=== PATIENT | female | born 1995 | race Caucasian/White ===

== ENCOUNTER 2017-04-09 06:17 | Emergency (ER) | payer BC, OTHER ==
[2017-04-09] MEDS ORDERED: NORMAL SALINE 1000 ML 1,000 ML IV ONE ×2 (07:07)
[2017-04-09] MEDS ORDERED: AMPICILLIN SOD/SULBACTAM 3 GM VIAL IV ONE (07:07)
[2017-04-09 07:55] LABS: ABSOLUTE BASOPHILS # (AUTO) 0.1 10^3/uL (0.0-0.2); ABSOLUTE EOSINOPHILS # (AUTO) 0.3 10^3/uL (0.0-0.6); ABSOLUTE LYMPHOCYTES (AUTO) 3.4 10^3/uL (0.5-4.7); ABSOLUTE MONOCYTES (AUTO) 0.9 10^3/uL (0.1-1.4); ABSOLUTE NEUT (AUTO) 5.3 10^3/uL (1.7-8.2); BASOPHILS % (AUTO) 0.7 % (0-2); EOSINOPHILS % (AUTO) 2.7 % (0-6); HEMATOCRIT 40.8 % (36.0-47.0); HEMOGLOBIN 14.1 g/dL (12.0-15.5); HGB HCT DIFFERENCE 1.5; LYMPHOCYTES % (AUTO) 34.1 % (13-45); MEAN CORPUSCULAR HEMOGLOBIN 30.1 pg (27.0-33.4); MEAN CORPUSCULAR HGB CONC 34.6 g/dL (32.0-36.0); MEAN CORPUSCULAR VOLUME 87 fl (80-97); MONOCYTES % (AUTO) 8.6 % (3-13); RED BLOOD COUNT 4.69 10^6/uL (3.72-5.28); RED CELL DISTRIBUTION WIDTH 12.7 % (11.5-14.0); SEGMENTED NEUTROPHILS % (AUTO) 53.9 % (42-78); WHITE BLOOD COUNT 9.9 10^3/uL (4.0-10.5)
[2017-04-09 07:57] LABS: APPEARANCE,URINE CLEAR; BILIRUBIN,URINE NEGATIVE (NEGATIVE); GLUCOSE, URINE NEGATIVE (NEGATIVE); KETONES,URINE NEGATIVE (NEGATIVE); LEUKOCYTE ESTERASE,URINE NEGATIVE (NEGATIVE); NITRITE,URINE NEGATIVE (NEGATIVE); PROTEIN,URINE NEGATIVE (NEGATIVE); URINE SPECIFIC GRAVITY 1.002; UROBILINOGEN,URINE NEGATIVE mg/dL (<2.0)
[2017-04-09] MEDS ORDERED: ONDANSETRON HCL INJ/PF 4 MG/2 ML SDV IV ONE ×2 (08:02→09:25)
[2017-04-09] MEDS ORDERED: MORPHINE SULFATE 10 MG/ML INJ IV ONE (08:02)
--- NOTE | 2017-04-09 08:10 | ER Document Report ---
ED General - General Chief Complaint: Abdominal Pain Stated Complaint: ABDOMINAL PAIN Time Seen by Provider: 04/09/17 07:06 TRAVEL OUTSIDE OF THE [place] IN LAST 30 DAYS: No - HPI Patient complains to provider of: Right lower quadrant abdominal pain Notes: Patient coming in for evaluation of her lower quadrant abdominal pain ongoing since 10:00 last night with chills nausea vomiting and diarrhea. Patient states painful to ambulate in the right lower quadrant. Patient denies any sexual intercourse since December stating that her currently is deployed. No vaginal bleeding or vaginal discharge. Denies any other past medical history denies any past surgical abdominal history. - Related Data Allergies/Adverse Reactions: fentanyl [Fentanyl] Allergy (Verified 12/26/15 01:45) naproxen [Naproxen] Allergy (Verified 12/26/15 01:45) Past Medical History - Social History Smoking Status: Unknown if Ever Smoked Family History: Reviewed & Not Pertinent Patient has suicidal ideation: No Patient has homicidal ideation: No Renal/ Medical History: Denies: Hx Peritoneal Dialysis Past Surgical History: Reports: Hx Nose Surgery, Hx Orthopedic Surgery - right fottx3 - Immunizations Hx Diphtheria, Pertussis, Tetanus Vaccination: Yes Review of Systems - Review of Systems Constitutional: No symptoms reported EENT: No symptoms reported Cardiovascular: No symptoms reported Respiratory: No symptoms reported Gastrointestinal: Abdominal pain Genitourinary: No symptoms reported Female Genitourinary: No symptoms reported Musculoskeletal: No symptoms reported Skin: No symptoms reported Hematologic/Lymphatic: No symptoms reported Neurological/Psychological: No symptoms reported -: Yes All other systems reviewed and negative Physical Exam - Vital signs Vitals: Temp Pulse Resp BP Pulse Ox 97.7 F 95 16 105/67 99 04/09/17 06:20 04/09/17 06:20 04/09/17 06:20 04/09/17 06:20 04/09/17 06:20 Interpretation: Normal - General General appearance: Appears well, Alert - HEENT Head: Normocephalic, Atraumatic Eyes: Normal Pupils: PERRL - Respiratory Respiratory status: No respiratory distress Chest status: Nontender Breath sounds: Normal Chest palpation: Normal - Cardiovascular Rhythm: Regular Heart sounds: Normal auscultation Murmur: No - Abdominal Inspection: Normal Distension: No distension Bowel sounds: Normal Tenderness: Tender - Regarding the right lower quadrant moderate tenderness no rebound, McBurney's point, Guarding. No: Andino's sign, Rebound Organomegaly: No organomegaly Notes: Patient with a positive psoas sign - Genitourinary External exam: Normal Speculum exam: Normal Bimanuel exam: Normal - Back Back: Normal, Nontender - Extremities General upper extremity: Normal inspection, Nontender, Normal color, Normal ROM , Normal temperature General lower extremity: Normal inspection, Nontender, Normal color, Normal ROM , Normal temperature, Normal weight bearing. No: Kulwinder's sign - Neurological Neuro grossly intact: Yes Cognition: Normal Orientation: AAOx4 [place] Coma Scale Eye Opening: Spontaneous [place] Coma Scale Verbal: Oriented [place] Coma Scale Motor: Obeys Commands Hussein Coma Scale Total: 15 Speech: Normal Motor strength normal: LUE, RUE, LLE, RLE Sensory: Normal - Psychological Associated symptoms: Normal affect, Normal mood - Skin Skin Temperature: Warm Skin Moisture: Dry Skin Color: Normal Course - Re-evaluation Re-evalutation: 04/09/17 08:10 Concerning for acute appendicitis with patient symptoms nausea vomiting diarrhea right lower quadrant pain. Will perform pelvic examination will get a CT scan with IV and oral contrast. Pain medication will be given patient was given a prophylactic dose of Unasyn 04/09/17 14:11 CT scan did not show any signs of acute appendicitis. Patient still having right lower quadrant pain will assess for possible ovarian etiology of a pelvic examination was benign 04/09/17 14:58 The patient presents with abdominal pain without signs of peritonitis or other life-threatening or serious etiology. The patient appears stable for discharge and has been instructed to return immediately if the symptoms worsen in any way , or in 8-12hr if not improved for re-evaluation. The patient has been instructed to return if the symptoms worsen or change in any way. - Vital Signs Vital signs: Temp Pulse Resp BP Pulse Ox 97.5 F 65 16 100/68 98 04/09/17 12:20 04/09/17 12:20 04/09/17 12:20 04/09/17 12:20 04/09/17 12:20 - Laboratory Result Diagrams: 04/09/17 07:41 04/09/17 07:41 Laboratory results interpreted by me: 04/09/17 07:41 Urine Blood SMALL H Discharge - Discharge Clinical Impression: Cyst of ovary, right Abdominal pain Qualifiers: Abdominal location: right lower quadrant Qualified Code(s): R10.31 - Right lower quadrant pain Instructions: Observation for Appendicitis ([facility]), Abdominal Pain ([facility]), Ovarian Cyst ([facility]) Additional Instructions: Your evaluation today reveals that you have a right ovarian cyst CAT scan shows no signs of infection no signs of acute appendicitis. Please follow-up with your primary care physician take medication as prescribed. Prescriptions: Ondansetron [Zofran Odt 4 mg Tablet] 1 - 2 tab PO Q4H PRN #15 tab.rapdis PRN Reason: For Nausea/Vomiting Tramadol HCl [Ultram 50 mg Tablet] 50 mg PO ASDIR PRN #20 tablet PRN Reason: Forms: Return to Work
[2017-04-09 08:18] LABS: ALANINE AMINOTRANSFERASE 27 U/L (9-52); ALBUMIN 4.4 g/dL (3.5-5.0); ALKALINE PHOSPHATASE 56 U/L (38-126); ANION GAP 11 (5-19); ASPARTATE AMINO TRANSFERASE 18 U/L (14-36); BILIRUBIN,DIRECT 0.3 mg/dL (0.0-0.4); BILIRUBIN,TOTAL 0.4 mg/dL (0.2-1.3); BLOOD UREA NITROGEN 8 mg/dL (7-20); CALCIUM 9.4 mg/dL (8.4-10.2); CARBON DIOXIDE 24 mmol/L (22-30); CHLORIDE 105 mmol/L (98-107); CREATININE RESULT 0.59 mg/dL (0.52-1.25); GLUCOSE 89 mg/dL (75-110); POTASSIUM 3.7 mmol/L (3.6-5.0); SODIUM 139.9 mmol/L (137-145); TOTAL PROTEIN 7.7 g/dL (6.3-8.2)
[2017-04-09] MEDS ORDERED: FAMOTIDINE INJ/PF 20 MG/2 ML SDV IV ONE ×2 (09:08→09:11)
[2017-04-09] MEDS ORDERED: DIPHENHYDRAMINE HCL 50 MG/ML VIAL IV ONE (09:08)
[2017-04-09] MEDS ORDERED: DIPHENHYDRAMINE HCL 50 MG/ML VIAL ONE (09:11)
--- NOTE | 2017-04-09 10:24 | RADIOLOGY REPORT (SQ) ---
EXAM DESCRIPTION: CT ABD/PELVIS WITH IV ORAL COMPLETED DATE/TIME: 04/09/2017 10:10 am REASON FOR STUDY: RLQ pain COMPARISON: None. TECHNIQUE: CT scan of the abdomen and pelvis performed with intravenous and oral contrast using shell miguel scanning technique with dynamic intravenous contrast injection. Images reviewed with lung, soft t issue, and bone windows. Reconstructed coronal and sagittal MPR images reviewed. Delayed images for e valuation of the urinary system also acquired. All images stored on PACS. All CT scanners at this facility use dose modulation, iterative reconstruction, and/or weight based d osing when appropriate to reduce radiation dose to as low as reasonably achievable (ALARA). [facility]: Dose Right [facility]: CareDose [facility]: Dose Right [facility]: Teradose 4D [facility]: [place] CONTRAST TYPE AND DOSE: contrast/concentration: Isovue 370.00 mg/ml; Total Contrast Delivered: 83.0 ml; Total Saline Delivered: 68.1 ml RENAL FUNCTION: None required. The patient is less than 50 years old. RADIATION DOSE: 19.09 . LIMITATIONS: None. FINDINGS: LOWER CHEST: No significant findings. No nodules or infiltrates. LIVER: Normal size. No masses. No dilated ducts. SPLEEN: Normal size. No focal lesions. PANCREAS: No masses. No significant calcifications. No adjacent inflammation or peripancreatic fluid collections. Pancreatic duct not dilated. GALLBLADDER: No identified stones by CT criteria. No inflammatory changes to suggest cholecystitis. ADRENAL GLANDS: No significant masses or asymmetry. RIGHT KIDNEY AND URETER: No solid masses. No significant calcifications. No hydronephrosis or hyd roureter. LEFT KIDNEY AND URETER: No solid masses. No significant calcifications. No hydronephrosis or hydr oureter. AORTA AND VESSELS: No aneurysm. No dissection. Renal arteries, SMA, celiac without stenosis. RETROPERITONEUM: No retroperitoneal adenopathy, hemorrhage or masses. BOWEL AND PERITONEAL CAVITY: No obstruction. No visualized masses. No free fluid. No inflammatory ch anges or thickening of bowel wall. APPENDIX: Normal. PELVIS: No significant masses. Normal bladder. No free fluid. ABDOMINAL WALL: No masses. No hernias. BONES: No significant or acute findings. OTHER: No other significant finding. IMPRESSION: NO SIGNIFICANT OR ACUTE FINDINGS IN THE ABDOMEN OR PELVIS. TECHNICAL DOCUMENTATION: JOB ID: [id number] Quality ID # [id number]: Final reports with documentation of one or more dose reduction techniques (e.g., Au tomated exposure control, adjustment of the mA and/or kV according to patient size, use of iterative reconstruction technique) 2010 [employer]- All Rights Reserved
[2017-04-09 11:24] LABS: CHLAM PCR NOT DETECTED (NOT DETECT)
--- NOTE | 2017-04-09 14:25 | RADIOLOGY REPORT (SQ) ---
EXAM DESCRIPTION: U/S NON OB PEL TV W/DOPPLER COMPLETED DATE/TIME: 04/09/2017 2:12 pm REASON FOR STUDY: RLQ pain COMPARISON: CT abdomen pelvis 04/09/2017 TECHNIQUE: Dynamic and static grayscale images acquired of the pelvis via transvaginal approach and recorded on PACS. Additional selected color Doppler and spectral images recorded. LIMITATIONS: None. FINDINGS: UTERUS: Contour normal. No mass. ENDOMETRIAL STRIPE: No focal or generalized thickening. No masses. CERVIX: 1.8 cm. No nabothian cysts. RIGHT OVARY: There is a 20 x 16 x 16 mm follicular cyst. RIGHT OVARY DOPPLER: Normal arterial vascular flow without evidence for torsion. LEFT OVARY: Not identified. LEFT OVARY DOPPLER: Ovary not identified. FREE FLUID: None noted. OTHER: No other significant finding. MEASUREMENTS: UTERUS: 63 x 65 x 48 mm. ENDOMETRIAL STRIPE: 6.4 mm. RIGHT OVARY: 39 x 21 x 24 mm. LEFT OVARY: Not identified. IMPRESSION: Essentially normal study. There is a 20 mm follicular cyst on the right ovary. TECHNICAL DOCUMENTATION: JOB ID: [id number]- All Rights Reserved
[2017-04-09 15:12] VITALS: BP 108/68
== END 2017-04-09 15:10 | disposition home or self-care (01) ==
LOC: ER 06:17
DX: N83.201 Unspecified ovarian cyst, right side (principal); R10.31 Right lower quadrant pain; R11.2 Nausea with vomiting, unspecified; R19.7 Diarrhea, unspecified
CPT/HCPCS: 96376; 99284; 96361; 96375; 96365; 36415; 87210; 83690; 85025; 81025; 80053; 81001; 87491; 87591; 76830; 93976; 74177; J1200; J0295; J2270; J2405; J7030; S0028

== ENCOUNTER 2018-04-22 00:52 | Emergency (ER) | payer BC, OTHER ==
[2018-04-22 01:48] LABS: APPEARANCE,URINE CLEAR; BILIRUBIN,URINE NEGATIVE (NEGATIVE); COLOR,URINE STRAW; GLUCOSE, URINE NEGATIVE (NEGATIVE); KETONES,URINE NEGATIVE (NEGATIVE); LEUKOCYTE ESTERASE,URINE NEGATIVE (NEGATIVE); NITRITE,URINE NEGATIVE (NEGATIVE); PROTEIN,URINE NEGATIVE (NEGATIVE); URINE SPECIFIC GRAVITY 1.008; UROBILINOGEN,URINE NEGATIVE mg/dL (<2.0)
[2018-04-22] MEDS ORDERED: KETOROLAC TROMETHAMINE INJ/PF 30 MG/1 ML SDV IV ONE (02:10)
--- NOTE | 2018-04-22 02:17 | ER Document Report ---
ED GI/ - General Mode of Arrival: Ambulatory Information source: Patient TRAVEL OUTSIDE OF THE [place] IN LAST 30 DAYS: No <GIOVANNA TAM - Last Filed: 04/22/18 02:30> <ROSALBA SORIA - Last Filed: 04/22/18 04:38> - General Chief Complaint: Lower Abdominal Pain Stated Complaint: ABDOMINAL PAIN Time Seen by Provider: 04/22/18 02:01 Notes: Patient is a 22 year old female presenting to the emergency department complaining of lower abdominal pain and abnormal vaginal bleeding onset 3 days ago. Patient states she began to have heavy bleeding with blood clots and lower abdominal pain 3 days ago and presented to [facility] yesterday. She states she was diagnosed with menstrual cramps and discharged home. She states her menstrual periods are normally on time without severe cramps. She states the pain she is experiencing today is not similar to her menstrual cramps or ovarian cysts. Patient denies any fevers or vaginal discharge. Patient states her last menstrual period was 03/18/2018 and believes she is currently . (GIOVANNA TAM) - Related Data Allergies/Adverse Reactions: fentanyl [Fentanyl] Allergy (Verified 12/26/15 01:45) naproxen [Naproxen] Allergy (Verified 12/26/15 01:45) Past Medical History - General Information source: Patient - Social History Smoking Status: Current Some Day Smoker Cigarette use (# per day): Yes Frequency of alcohol use: Rare Family History: Reviewed & Not Pertinent Past Surgical History: Reports: Hx Nose Surgery, Hx Orthopedic Surgery - right fottx3 - Immunizations Hx Diphtheria, Pertussis, Tetanus Vaccination: Yes <GIOVANNA TAM - Last Filed: 04/22/18 02:30> Review of Systems - Review of Systems Constitutional: No symptoms reported EENT: No symptoms reported Cardiovascular: No symptoms reported Respiratory: No symptoms reported Gastrointestinal: See HPI, Abdominal pain Genitourinary: No symptoms reported Female Genitourinary: See HPI, Last menstrual period, Vaginal bleeding Musculoskeletal: No symptoms reported Skin: No symptoms reported Hematologic/Lymphatic: No symptoms reported Neurological/Psychological: No symptoms reported -: Yes All other systems reviewed and negative <GIOVANNA TAM - Last Filed: 04/22/18 02:30> Physical Exam <GIOVANNA TAM - Last Filed: 04/22/18 02:30> - Genitourinary External exam: Normal Speculum exam: Cervix closed, Other - There is a bar thick purulent drainage coming from the cervix. There is no bleeding noted at this time. Vaginal bleeding: None Bimanuel exam: Cervical motion tender, Bladder/Urethral tender, Adnexal tenderness <ROSALBA SORIA - Last Filed: 04/22/18 04:38> - Vital signs Vitals: Temp Pulse Resp BP Pulse Ox 99.3 F 108 H 24 H 120/90 H 99 04/22/18 00:59 04/22/18 00:59 04/22/18 00:59 04/22/18 00:59 04/22/18 00:59 - Notes Notes: GENERAL: Alert, interacts well. Appears uncomfortable. HEAD: Normocephalic, atraumatic. EYES: Pupils equal, round, and reactive to light. Extraocular movements intact. ENT: Oral mucosa moist, tongue midline. NECK: Full range of motion. Supple. Trachea midline. LUNGS: Clear to auscultation bilaterally, no wheezes, rales, or rhonchi. No respiratory distress. HEART: Regular rate and rhythm. No murmurs, gallops, or rubs. ABDOMEN: Soft, obese, lower abdomen diffusely tender to palpation. Non- distended. Bowel sounds present in all 4 quadrants. EXTREMITIES: Moves all 4 extremities spontaneously. No edema, radial and dorsalis pedis pulses 2/4 bilaterally. No cyanosis. NEUROLOGICAL: Alert and oriented x3. Normal speech. PSYCH: Normal affect, normal mood. SKIN: Warm, dry, normal turgor. No rashes or lesions noted. (YONATANGIOVANNA BERNSTEIN) Course - Laboratory Result Diagrams: 04/22/18 01:50 04/22/18 01:50 <GIOVANNA TAM - Last Filed: 04/22/18 02:30> - Laboratory Result Diagrams: 04/22/18 01:50 04/22/18 01:50 <ROSALBA SORIA - Last Filed: 04/22/18 04:38> - Vital Signs Vital signs: Temp Pulse Resp BP Pulse Ox 99.3 F 108 H 24 H 120/90 H 99 04/22/18 00:59 04/22/18 00:59 04/22/18 00:59 04/22/18 00:59 04/22/18 00:59 - Laboratory Laboratory results interpreted by me: 04/22/18 04/22/18 04/22/18 01:10 01:50 01:50 WBC 13.7 H Seg Neutrophils % 81.3 H Lymphocytes % 10.5 L Absolute Neutrophils 11.2 H Chloride 108 H Carbon Dioxide 17 L Urine Blood MODERATE H N.gonorrhoeae DNA (PCR) 04/22/18 02:45 WBC Seg Neutrophils % Lymphocytes % Absolute Neutrophils Chloride Carbon Dioxide Urine Blood N.gonorrhoeae DNA (PCR) DETECTED H Discharge <GIOVANNA TAM - Last Filed: 04/22/18 02:30> <ROSALBA SORIA - Last Filed: 04/22/18 04:38> - Discharge Clinical Impression: Pelvic inflammatory disease (PID), Gonorrhea Condition: Stable Disposition: HOME, SELF-CARE Additional Instructions: Pelvic Inflammatory Disease: You have been diagnosed as having pelvic inflammatory disease (PID). This is an infection of the fallopian tubes and surrounding areas of the pelvis. Symptoms are usually pelvic pain and discharge. The infection can do permanent damage to the tubes and ovaries. It should be taken very seriously. Treatment is antibiotics, which may be given by vein or by injection if the infection seems serious. It's important that you receive all recommended medication. Condoms help prevent spread of this infection to others. Because this infection is spread sexually, it's important that your sexual partner be checked before resuming sexual relations. If a culture shows gonorrhea or chlamydia organisms, the law requires that this be reported to the health department. Call the doctor or return at once if you develop increasing fever, rash, severe pelvic pain, vaginal bleeding (other than your period), or problems with your bladder or bowels. Gonorrhea: You have been diagnosed with gonorrhea. In men, this germ infects the urethra (and sometimes the throat). Men usually have drainage from the penis and pain with urination. In women, the germ infects the vagina and fallopian tubes. There may be discharge and pelvic pain. Some women have no symptoms at all. The infection can do permanent damage to the tubes and ovaries. It should be taken very seriously. Treatment is antibiotics. It's important that you receive all recommended medication. Use condoms to prevent spread of the infection. Because this infection is spread sexually, your sexual partner must be checked before resuming sexual relations. If a culture shows gonorrhea germs, it must be reported to the health department. Call the doctor or return at once if you develop increasing fever, rash, joint swelling, severe pelvic pain, vaginal bleeding (other than your period), or problems with your bladder or bowels. Take medications as prescribed. Drink plenty of fluids. Rest as much as possible. Take ibuprofen 800 mg every 8 hours or Aleve 2 tablets every 12 hours for the next few days. Follow-up with your doctor or with [facility] for recheck next week. RETURN TO THE EMERGENCY ROOM IF ANY NEW OR WORSENING SYMPTOMS. Prescriptions: Doxycycline Hyclate 100 mg PO BID #14 tablet Referrals: JOLENE MENDIOLA [Primary Care Provider] - Follow up as needed [facility] [Provider Group] - Follow up in 1 week Scribe Attestation: 04/22/18 03:10 I personally performed the services described in the documentation, reviewed and edited the documentation which was dictated to the scribe in my presence, and it accurately records my words and actions. (ROSALBA SORIA) Scribe Documentation - Scribe Written by Adela:: Adela Coates, 04/22/2018 02:19 acting as scribe for :: Marbin <GIOVANNA TAM - Last Filed: 04/22/18 02:30>
[2018-04-22 02:19] LABS: ABSOLUTE EOSINOPHILS # (AUTO) 0.1 10^3/uL (0.0-0.6); ABSOLUTE LYMPHOCYTES (AUTO) 1.4 10^3/uL (0.5-4.7); ABSOLUTE NEUT (AUTO) 11.2 10^3/uL (1.7-8.2); BASOPHILS % (AUTO) 0.3 % (0-2); EOSINOPHILS % (AUTO) 0.9 % (0-6); HEMATOCRIT 41.7 % (36.0-47.0); HEMOGLOBIN 14.7 g/dL (12.0-15.5); LYMPHOCYTES % (AUTO) 10.5 % (13-45); MEAN CORPUSCULAR HGB CONC 35.1 g/dL (32.0-36.0); MEAN CORPUSCULAR VOLUME 85 fl (80-97); PLATELET COUNT 245 10^3/uL (150-450); RED BLOOD COUNT 4.89 10^6/uL (3.72-5.28); RED CELL DISTRIBUTION WIDTH 12.8 % (11.5-14.0); SEGMENTED NEUTROPHILS % (AUTO) 81.3 % (42-78); TOTAL CELLS COUNTED % (AUTO) 100 %; WHITE BLOOD COUNT 13.7 10^3/uL (4.0-10.5)
[2018-04-22 02:44] LABS: ALANINE AMINOTRANSFERASE 23 U/L (9-52); ALBUMIN 4.6 g/dL (3.5-5.0); ALKALINE PHOSPHATASE 61 U/L (38-126); ANION GAP 17 (5-19); ASPARTATE AMINO TRANSFERASE 19 U/L (14-36); BILIRUBIN,DIRECT 0.3 mg/dL (0.0-0.4); BILIRUBIN,TOTAL 0.5 mg/dL (0.2-1.3); BLOOD UREA NITROGEN 8 mg/dL (7-20); CARBON DIOXIDE 17 mmol/L (22-30); CHLORIDE 108 mmol/L (98-107); GLUCOSE 92 mg/dL (75-110); POTASSIUM 3.7 mmol/L (3.6-5.0); SODIUM 141.5 mmol/L (137-145); TOTAL PROTEIN 7.8 g/dL (6.3-8.2)
[2018-04-22] MEDS ORDERED: CEFTRIAXONE INJ 1000 MG VIAL ONE (03:22)
[2018-04-22] MEDS: CEFTRIAXONE 1 GM/D5W RTU 1 GM/50 ML RTUPB IV ONE ×2 (03:30→03:32)
[2018-04-22] MEDS ORDERED: DOXYCYCLINE HYCLATE 100 MG TABLET PO ONE (03:49)
[2018-04-22 04:20] LABS: WBCS (WET MOUNT) 1+ WBCS SEEN; YEAST (WET MOUNT) NO YEAST SEEN
[2018-04-22 04:31] LABS: CHLAM PCR NOT DETECTED (NOT DETECT); GON PCR DETECTED (NOT DETECT)
[2018-04-22] MEDS ORDERED: HYDROCODONE/ACETAMINOPHEN 5-325 MG (6 TAB/ER DISP) PO PRN (04:37)
[2018-04-22 04:51] VITALS: BP 110/72
[2018-04-22 14:02] LABS: T.VAGINALIS (WET MOUNT) COULD NOT PERFORM
== END 2018-04-22 04:51 | disposition home or self-care (01) ==
LOC: ER 00:52
DX: N73.9 Female pelvic inflammatory disease, unspecified (principal); A54.9 Gonococcal infection, unspecified; R10.30 Lower abdominal pain, unspecified; F17.210 Nicotine dependence, cigarettes, uncomplicated
CPT/HCPCS: 99284; 96375; 96365; 36415; 87210; 84702; 85025; 81025; 80053; 81001; 87491; 87591; J1885; J0696

== ENCOUNTER 2018-09-01 16:20 | Emergency (ER) | payer BC, OTHER ==
[2018-09-01 17:04] LABS: APPEARANCE,URINE CLEAR; BILIRUBIN,URINE NEGATIVE (NEGATIVE); COLOR,URINE YELLOW; GLUCOSE, URINE NEGATIVE (NEGATIVE); KETONES,URINE NEGATIVE (NEGATIVE); LEUKOCYTE ESTERASE,URINE NEGATIVE (NEGATIVE); NITRITE,URINE NEGATIVE (NEGATIVE); PROTEIN,URINE NEGATIVE (NEGATIVE); UROBILINOGEN,URINE NEGATIVE mg/dL (<2.0)
[2018-09-01] MEDS ORDERED: ONDANSETRON HCL INJ/PF 4 MG/2 ML SDV IV ONE (17:08)
[2018-09-01] MEDS ORDERED: NORMAL SALINE 1000 ML 1,000 ML IV ONE (17:08)
--- NOTE | 2018-09-01 17:10 | ER Document Report ---
ED Medical Screen (RME) - General Chief Complaint: Abdominal Pain Stated Complaint: VOMITING, ABDOMINAL PAIN Time Seen by Provider: 09/01/18 17:04 Notes: 23 years old female with , 13 weeks presents today with vomited large chunk of blood as well as having diarrhea since this morning. Prior to that she was nauseous for the last several days, have vomited small amount of blood 2 times prior. Having lower abdominal pain. No fever chills or other constitutional symptoms. TRAVEL OUTSIDE OF THE [place] IN LAST 30 DAYS: No - Related Data Allergies/Adverse Reactions: fentanyl [Fentanyl] Allergy (Verified 09/01/18 16:24) naproxen [Naproxen] Allergy (Verified 09/01/18 16:24) Past Medical History - Social History Frequency of alcohol use: None Drug Abuse: None Renal/ Medical History: Denies: Hx Peritoneal Dialysis Past Surgical History: Reports: Hx Nose Surgery, Hx Orthopedic Surgery - right foot x3 - Immunizations Hx Diphtheria, Pertussis, Tetanus Vaccination: Yes Physical Exam - Vital signs Vitals: Temp Pulse Resp BP Pulse Ox 97.9 F 86 20 122/54 L 100 09/01/18 16:56 09/01/18 16:56 09/01/18 16:56 09/01/18 16:56 09/01/18 16:56 Course - Vital Signs Vital signs: Temp Pulse Resp BP Pulse Ox 97.9 F 86 20 122/54 L 100 09/01/18 16:56 09/01/18 16:56 09/01/18 16:56 09/01/18 16:56 09/01/18 16:56 - Laboratory Laboratory results interpreted by me: 09/01/18 16:40 Urine Ascorbic Acid 40 H Doctor's Discharge - Discharge Referrals: [facility]AL[facility],NO [Primary Care Provider] - Follow up as needed
[2018-09-01 18:52] LABS: ABSOLUTE EOSINOPHILS # (AUTO) 0.1 10^3/uL (0.0-0.6); ABSOLUTE LYMPHOCYTES (AUTO) 1.7 10^3/uL (0.5-4.7); ABSOLUTE MONOCYTES (AUTO) 0.6 10^3/uL (0.1-1.4); ABSOLUTE NEUT (AUTO) 4.9 10^3/uL (1.7-8.2); BASOPHILS % (AUTO) 0.4 % (0-2); HEMATOCRIT 37.4 % (36.0-47.0); HEMOGLOBIN 13.1 g/dL (12.0-15.5); LYMPHOCYTES % (AUTO) 23.2 % (13-45); MEAN CORPUSCULAR HEMOGLOBIN 29.8 pg (27.0-33.4); MEAN CORPUSCULAR VOLUME 85 fl (80-97); MONOCYTES % (AUTO) 8.5 % (3-13); PLATELET COUNT 247 10^3/uL (150-450); RED BLOOD COUNT 4.39 10^6/uL (3.72-5.28); RED CELL DISTRIBUTION WIDTH 12.8 % (11.5-14.0); SEGMENTED NEUTROPHILS % (AUTO) 66.9 % (42-78); TOTAL CELLS COUNTED % (AUTO) 100 %; WHITE BLOOD COUNT 7.3 10^3/uL (4.0-10.5)
--- NOTE | 2018-09-01 19:01 | ER Document Report ---
ED GI/ - General Chief Complaint: Abdominal Pain Stated Complaint: VOMITING, ABDOMINAL PAIN Time Seen by Provider: 09/01/18 19:01 Mode of Arrival: Ambulatory Information source: Patient Notes: Patient is a 23-year-old female at approximately 13 weeks who presents with acute onset lower abdominal pain along with chronic episodes of bloody and nonbilious emesis. Patient states that during her entire thus far she has had several episodes daily of nonbloody emesis, today the episodes changed to bloody and she began to have lower abdominal cramping. Pain also radiates around to the back, she denies vaginal bleeding or discharge. She denies recent injury to the abdomen or pelvis. Of note, the patient has been seen and evaluated by her shipping specialist who has given her Diclegis without improvement. TRAVEL OUTSIDE OF THE [place] IN LAST 30 DAYS: No - HPI Patient complains to provider of: Abdominal pain, , Vomiting. No: Vaginal bleeding, Vaginal discharge Onset: Just prior to arrival Timing/Duration: Sudden Quality of pain: Achy, Cramping. denies: Sharp, Stabbing Severity at maximum: Moderate Severity in ED: Mild Pain Level: 2 Context: Location: LLQ, RLQ, Pelvis Vaginal bleeding (Compared to normal period): None Menstrual period history: : 1 Para: 0 OB ultrasound done: No vitamins taken: Yes Sexual history: Active Associated symptoms: Blood in emesis, Diarrhea, Nausea. denies: Blood in stool , Chest pain, Fever Exacerbated by: Denies Relieved by: Denies Similar symptoms previously: Yes Recently seen / treated by doctor: Yes - Related Data Allergies/Adverse Reactions: fentanyl [Fentanyl] Allergy (Verified 09/01/18 16:24) naproxen [Naproxen] Allergy (Verified 09/01/18 16:24) Past Medical History - General Information source: Patient - Social History Smoking Status: Current Every Day Smoker Cigarette use (# per day): No Chew tobacco use (# tins/day): No Frequency of alcohol use: None Drug Abuse: None Lives with: Alone Family History: Reviewed & Not Pertinent Patient has suicidal ideation: No Patient has homicidal ideation: No - Past Medical History Cardiac Medical History: Reports: None Pulmonary Medical History: Reports: None EENT Medical History: Reports: None Neurological Medical History: Reports: None Endocrine Medical History: Reports: None Renal/ Medical History: Reports: None. Denies: Hx Peritoneal Dialysis Malignancy Medical History: Reports: None GI Medical History: Reports: Other - Hyperemesis gravidarum Musculoskeletal Medical History: Reports None Skin Medical History: Reports None Psychiatric Medical History: Reports: None Traumatic Medical History: Reports: None Infectious Medical History: Reports: None Surgical Hx: Negative Past Surgical History: Reports: Hx Nose Surgery, Hx Orthopedic Surgery - right foot x3 - Immunizations Hx Diphtheria, Pertussis, Tetanus Vaccination: Yes Review of Systems - Review of Systems -: Yes ROS unobtainable due to patient's medical condition Constitutional: No symptoms reported EENT: No symptoms reported Cardiovascular: No symptoms reported Respiratory: No symptoms reported Gastrointestinal: Abdominal pain, Diarrhea, Nausea, Vomiting, Blood in vomit. denies: Abdomen distended, Blood streaked bowels, Black stools, Rectal bleeding Genitourinary: No symptoms reported Female Genitourinary: No symptoms reported, . denies: Vaginal discharge , Vaginal bleeding Musculoskeletal: No symptoms reported Skin: No symptoms reported Hematologic/Lymphatic: No symptoms reported Neurological/Psychological: No symptoms reported -: Yes All other systems reviewed and negative Physical Exam - Vital signs Vitals: Temp Pulse Resp BP Pulse Ox 97.9 F 86 20 122/54 L 100 09/01/18 16:56 09/01/18 16:56 09/01/18 16:56 09/01/18 16:56 09/01/18 16:56 Interpretation: Normal - General General appearance: Appears well, Alert In distress: None - HEENT Head: Normocephalic, Atraumatic Eyes: Normal Pupils: PERRL - Respiratory Respiratory status: No respiratory distress Chest status: Nontender Breath sounds: Normal Chest palpation: Normal - Cardiovascular Rhythm: Regular Heart sounds: Normal auscultation Murmur: No - Abdominal Inspection: Normal Distension: No distension Bowel sounds: Normal Tenderness: Tender - Gravid abdomen with palpable uterine fundus above the pubic symphysis. No: Guarding, Rebound Organomegaly: No organomegaly - Rectal Tenderness: No - Deferred - Genitourinary External exam: Normal Speculum exam: Other - Deferred Notes: Deferred - Back Back: Normal, Nontender - Extremities General upper extremity: Normal inspection, Nontender, Normal color, Normal ROM , Normal temperature General lower extremity: Normal inspection, Nontender, Normal color, Normal ROM , Normal temperature, Normal weight bearing. No: Kulwinder's sign - Neurological Neuro grossly intact: Yes Cognition: Normal Orientation: AAOx4 Orrick Coma Scale Eye Opening: Spontaneous Orrick Coma Scale Verbal: Oriented Hussein Coma Scale Motor: Obeys Commands Hussein Coma Scale Total: 15 Speech: Normal Motor strength normal: LUE, RUE, LLE, RLE Sensory: Normal - Psychological Associated symptoms: Normal affect, Normal mood - Skin Skin Temperature: Warm Skin Moisture: Dry Skin Color: Normal Course - Re-evaluation Re-evalutation: 09/01/18 20:17 Plan to obtain transvaginal ultrasound as well as await beta hCG results from blood work. Patient has already been given IV fluids as well as Zofran from triage. 09/01/18 23:15 Lab work, including type and screen and quantitative hCG, are appropriate. Ultrasound shows no acute pathology, single intrauterine at 13 weeks and 4 days. Patient has been instructed to follow-up with her shipping specialist. She will be discharged home with return precautions, she both understands and agrees with the plan. - Vital Signs Vital signs: Temp Pulse Resp BP Pulse Ox 97.9 F 86 20 122/54 L 100 09/01/18 16:56 09/01/18 16:56 09/01/18 16:56 09/01/18 16:56 09/01/18 16:56 - Laboratory Result Diagrams: 09/01/18 18:15 09/01/18 18:15 Laboratory results interpreted by me: 09/01/18 09/01/18 16:40 18:15 Beta HCG, Quant 13183.00 H Urine Ascorbic Acid 40 H Discharge - Discharge Clinical Impression: Hyperemesis gravidarum Condition: Good Disposition: HOME, SELF-CARE Instructions: Reglan ([facility]), Hyperemesis Gravidarum ([facility]) Additional Instructions: Please follow-up with your shipping specialist as scheduled. Return to the emergency department immediately if you experience worsening abdominal pain, uncontrollable nausea, vaginal bleeding, or have any other concerning symptom. Prescriptions: Metoclopramide HCl [Reglan 10 mg Tablet] 10 mg PO Q6H PRN 10 Days #30 tablet PRN Reason: For Nausea/Vomiting Referrals: LOCALMD,NO [NO LOCAL MD] - Follow up as needed Print Language: Jamaican
[2018-09-01 19:07] LABS: ALANINE AMINOTRANSFERASE 23 U/L (9-52); ALBUMIN 4.3 g/dL (3.5-5.0); ALKALINE PHOSPHATASE 52 U/L (38-126); ANION GAP 11 (5-19); ASPARTATE AMINO TRANSFERASE 27 U/L (14-36); BILIRUBIN,DIRECT 0.2 mg/dL (0.0-0.4); BILIRUBIN,TOTAL 0.3 mg/dL (0.2-1.3); BLOOD UREA NITROGEN 7 mg/dL (7-20); CALCIUM 9.8 mg/dL (8.4-10.2); CARBON DIOXIDE 24 mmol/L (22-30); CHLORIDE 104 mmol/L (98-107); GLUCOSE 81 mg/dL (75-110); POTASSIUM 4.6 mmol/L (3.6-5.0); SODIUM 138.8 mmol/L (137-145); TOTAL PROTEIN 7.5 g/dL (6.3-8.2)
--- NOTE | 2018-09-01 22:04 | RADIOLOGY REPORT (SQ) ---
US PELVIS HISTORY: . Pelvic pain. COMPARISON: None. TECHNIQUE: Grayscale, color Doppler, and spectral Doppler ultrasound images of the pelvis were obtained. FINDINGS: There is an intrauterine gestational sac with a pole visualized. The crown-rump length measures 7.5 cm, which corresponds to 13 weeks 4 days of . heart rate is 145 bpm. Anterior placenta is seen. The ovaries were not evaluated on this study. IMPRESSION: Single live IUP with estimated gestational age 13 weeks 4 days. heart rate is 145 bpm.
[2018-09-01 23:37] VITALS: BP 110/59
== END 2018-09-01 23:35 | disposition home or self-care (01) ==
LOC: ER 16:20
DX: O21.0 Mild hyperemesis gravidarum (principal); O99.611 Diseases of the digestive system complicating pregnancy, first trimester; K92.0 Hematemesis; O26.891 Other specified pregnancy related conditions, first trimester; R10.31 Right lower quadrant pain; R10.32 Left lower quadrant pain; R10.2 Pelvic and perineal pain; R19.7 Diarrhea, unspecified; O99.331 Smoking (tobacco) complicating pregnancy, first trimester; Z3A.13 13 weeks gestation of pregnancy; Z88.5 Allergy status to narcotic agent; Z88.8 Allergy status to other drugs, medicaments and biological substances
CPT/HCPCS: 99284; 96361; 96374; 86900; 86901; 36415; 84702; 85025; 80053; 81001; 76801; J2405; J7030

== ENCOUNTER 2018-10-29 15:06 | Outpatient (CLI) | payer BC, OTHER ==
[2018-10-29] MEDS ORDERED: ONDANSETRON HCL INJ/PF 4 MG/2 ML SDV IV ONE (15:30)
[2018-10-29] MEDS ORDERED: ONDANSETRON HCL INJ/PF 4 MG/2 ML SDV ONE (15:51)
[2018-10-29] MEDS ORDERED: RINGERS SOLUTION,LACTATED 1,000 ML IV PRN (15:53)
[2018-10-29 18:33] LABS: APPEARANCE,URINE CLEAR; BILIRUBIN,URINE NEGATIVE (NEGATIVE); COLOR,URINE YELLOW; GLUCOSE, URINE NEGATIVE (NEGATIVE); KETONES,URINE NEGATIVE (NEGATIVE); LEUKOCYTE ESTERASE,URINE NEGATIVE (NEGATIVE); NITRITE,URINE NEGATIVE (NEGATIVE); PROTEIN,URINE NEGATIVE (NEGATIVE); URINE SPECIFIC GRAVITY 1.008; UROBILINOGEN,URINE NEGATIVE mg/dL (<2.0)
[2018-10-29 18:39] LABS: URINE AMPHETAMINES SCREEN NEGATIVE; URINE BARBITURATES SCREEN NEGATIVE; URINE BENZODIAZEPINES SCREEN NEGATIVE; URINE COCAINE SCREEN NEGATIVE; URINE MARIJUANA (THC) SCREEN NEGATIVE; URINE METHADONE SCREEN NEGATIVE; URINE PHENCYCLIDINE SCREEN NEGATIVE
== END 2018-10-29 17:04 | disposition home or self-care (01) ==
LOC: LC 15:06
PROVIDERS: ATTEND Obstetrics & Gynecology
PROC: 4A1HXCZ Monitoring of Products of Conception, Cardiac Rate, External Approach (ICD-10-PCS; principal; 2018-10-29)
DX: O99.612 Diseases of the digestive system complicating pregnancy, second trimester (principal); K52.9 Noninfective gastroenteritis and colitis, unspecified; Z3A.21 21 weeks gestation of pregnancy
CPT/HCPCS: 59899; 81001; 80307; J2405

== ENCOUNTER 2018-11-09 18:02 | Outpatient (CLI) | payer BC, OTHER ==
[2018-11-09 18:34] LABS: APPEARANCE,URINE SLIGHTLY-CLOUDY; BILIRUBIN,URINE NEGATIVE (NEGATIVE); COLOR,URINE YELLOW; GLUCOSE, URINE NEGATIVE (NEGATIVE); KETONES,URINE NEGATIVE (NEGATIVE); LEUKOCYTE ESTERASE,URINE NEGATIVE (NEGATIVE); NITRITE,URINE NEGATIVE (NEGATIVE); PROTEIN,URINE NEGATIVE (NEGATIVE); URINE SPECIFIC GRAVITY 1.021
[2018-11-09 18:52] LABS: URINE AMPHETAMINES SCREEN NEGATIVE; URINE BARBITURATES SCREEN NEGATIVE; URINE BENZODIAZEPINES SCREEN NEGATIVE; URINE COCAINE SCREEN NEGATIVE; URINE MARIJUANA (THC) SCREEN NEGATIVE; URINE METHADONE SCREEN NEGATIVE; URINE PHENCYCLIDINE SCREEN NEGATIVE
[2018-11-09] MEDS ORDERED: ACETAMINOPHEN 325 MG TABLET ONE (19:09)
[2018-11-09] MEDS ORDERED: ACETAMINOPHEN 325 MG TABLET PO ONE (19:11)
== END 2018-11-09 20:47 | disposition home or self-care (01) ==
LOC: LC 18:02
PROVIDERS: ATTEND Obstetrics & Gynecology
PROC: 4A1HXCZ Monitoring of Products of Conception, Cardiac Rate, External Approach (ICD-10-PCS; principal; 2018-11-09)
DX: O9A.212 Injury, poisoning and certain other consequences of external causes complicating pregnancy, second trimester (principal); S30.1XXA Contusion of abdominal wall, initial encounter; S00.93XA Contusion of unspecified part of head, initial encounter; W10.9XXA Fall (on) (from) unspecified stairs and steps, initial encounter; Y92.009 Unspecified place in unspecified non-institutional (private) residence as the place of occurrence of the external cause; Z3A.27 27 weeks gestation of pregnancy
CPT/HCPCS: 80307; 81001

== ENCOUNTER 2018-12-12 21:05 | Outpatient (CLI) | payer BC, OTHER ==
[2018-12-12 21:41] LABS: APPEARANCE,URINE CLOUDY; BILIRUBIN,URINE NEGATIVE (NEGATIVE); COLOR,URINE YELLOW; GLUCOSE, URINE NEGATIVE (NEGATIVE); KETONES,URINE NEGATIVE (NEGATIVE); LEUKOCYTE ESTERASE,URINE SMALL (NEGATIVE); NITRITE,URINE POSITIVE (NEGATIVE); PROTEIN,URINE NEGATIVE (NEGATIVE); URINE SPECIFIC GRAVITY 1.016; UROBILINOGEN,URINE NEGATIVE mg/dL (<2.0)
[2018-12-12 21:47] LABS: URINE AMPHETAMINES SCREEN NEGATIVE; URINE BARBITURATES SCREEN NEGATIVE; URINE BENZODIAZEPINES SCREEN NEGATIVE; URINE COCAINE SCREEN NEGATIVE; URINE MARIJUANA (THC) SCREEN NEGATIVE; URINE METHADONE SCREEN NEGATIVE; URINE PHENCYCLIDINE SCREEN NEGATIVE
[2018-12-12] MEDS ORDERED: CEFTRIAXONE INJ 1000 MG VIAL IM ONE (21:58)
[2018-12-12] MEDS ORDERED: LIDOCAINE 1% INJ-PF (10 MG/ML) 30 ML SDV INJ ONE (21:58)
[2018-12-12] MEDS ORDERED: CEFTRIAXONE INJ 1000 MG VIAL ONE (22:00)
[2018-12-12] MEDS ORDERED: LIDOCAINE 1% INJ-PF (10 MG/ML) 30 ML SDV ONE (22:00)
== END 2018-12-12 22:21 | disposition home or self-care (01) ==
LOC: LC 21:05
PROVIDERS: ATTEND Obstetrics & Gynecology Gynecology
DX: O36.8390 Maternal care for abnormalities of the fetal heart rate or rhythm, unspecified trimester, not applicable or unspecified (principal)
CPT/HCPCS: 87086; 81001; 80307; J3490; J0696

== ENCOUNTER 2019-01-31 21:47 | Outpatient (CLI) | payer BC, OTHER ==
[2019-01-31 22:33] LABS: APPEARANCE,URINE CLEAR; BILIRUBIN,URINE NEGATIVE (NEGATIVE); COLOR,URINE STRAW; GLUCOSE, URINE NEGATIVE (NEGATIVE); KETONES,URINE NEGATIVE (NEGATIVE); LEUKOCYTE ESTERASE,URINE NEGATIVE (NEGATIVE); NITRITE,URINE NEGATIVE (NEGATIVE); PROTEIN,URINE NEGATIVE (NEGATIVE); URINE SPECIFIC GRAVITY 1.001; UROBILINOGEN,URINE NEGATIVE mg/dL (<2.0)
[2019-01-31 22:46] LABS: URINE AMPHETAMINES SCREEN NEGATIVE; URINE BARBITURATES SCREEN NEGATIVE; URINE BENZODIAZEPINES SCREEN NEGATIVE; URINE COCAINE SCREEN NEGATIVE; URINE MARIJUANA (THC) SCREEN NEGATIVE; URINE METHADONE SCREEN NEGATIVE; URINE PHENCYCLIDINE SCREEN NEGATIVE
--- NOTE | 2019-01-31 23:18 | Non Stress Test Report ---
Non Stress Test Datetime Report Generated by CPN: 01/31/2019 23:18 DEMOGRAPHIC EGA NST: 35.2 INDICATION Indication for Study: Ordered by Provider VITAL SIGNS Temperature - NST: 98.3 Pulse - NST: 97 RESP - NST: 16 NBPSYS NST: 130 NBPDIA NST: 69 URINE RESULTS Urine Protein, NST: Negative Urine Ketones - NST: Negative Urine Glucose - NST: Negative Urine Blood - NST: Positive MONITORING Monitor Explained: Monitor Explained; Test Explained; Patient Verbalized Understanding Time on Monitor: 01/31/2019 22:06 Time off Monitor: 01/31/2019 22:40 NST Duration: 34 NST INTERVENTIONS NST Interventions: PO Hydration Physician Notified NST: Dr. Younger BABY A: [id number] BABY A Movement : Decreased Contraction Frequency : None FHR Baseline : 125 Accelerations : 15X15 Decelerations : None Variability : Moderate 6-25bpm NST Review: Meets Criteria for Reactive NST NST Review and Verified By : A. Misyak, RN NST Results: Reactive NST REPORT Report Trigger: Send Report
== END 2019-01-31 22:58 | disposition home or self-care (01) ==
LOC: LC 21:47
PROVIDERS: ATTEND Obstetrics & Gynecology
PROC: 4A1HXCZ Monitoring of Products of Conception, Cardiac Rate, External Approach (ICD-10-PCS; principal; 2019-01-31)
DX: O36.8130 Decreased fetal movements, third trimester, not applicable or unspecified (principal); O47.03 False labor before 37 completed weeks of gestation, third trimester; Z3A.38 38 weeks gestation of pregnancy
CPT/HCPCS: 59025; 80307; 81001

== ENCOUNTER 2019-02-07 22:20 | Inpatient (IN) | payer BC, OTHER ==
[2019-02-07 22:59] LABS: APPEARANCE,URINE SLIGHTLY-CLOUDY; BILIRUBIN,URINE NEGATIVE (NEGATIVE); COLOR,URINE STRAW; GLUCOSE, URINE NEGATIVE (NEGATIVE); KETONES,URINE NEGATIVE (NEGATIVE); LEUKOCYTE ESTERASE,URINE TRACE (NEGATIVE); NITRITE,URINE NEGATIVE (NEGATIVE); PROTEIN,URINE NEGATIVE (NEGATIVE); URINE SPECIFIC GRAVITY 1.003; UROBILINOGEN,URINE NEGATIVE mg/dL (<2.0)
[2019-02-07 23:15] LABS: URINE AMPHETAMINES SCREEN NEGATIVE; URINE BARBITURATES SCREEN NEGATIVE; URINE BENZODIAZEPINES SCREEN NEGATIVE; URINE COCAINE SCREEN NEGATIVE; URINE MARIJUANA (THC) SCREEN NEGATIVE; URINE PHENCYCLIDINE SCREEN NEGATIVE
[2019-02-07 23:22] LABS: URINE METHADONE SCREEN NEGATIVE
[2019-02-07] MEDS ORDERED: RINGERS SOLUTION,LACTATED 1,000 ML IV ONE (23:26)
[2019-02-07] MEDS ORDERED: PENICILLIN G POTASSIUM 5,000,000 UNIT in DEXTROSE 5%-WATER 100 ML IV ONE (23:26)
--- NOTE | 2019-02-07 23:55 | Admission Physical ---
Datetime Report Generated by CPN: 02/07/2019 23:55 CURRENT ADMISSION Chief Complaint: Suspected Ruptured Membranes Indication for Induction: Not Applicable Admit Impression : , Intrauterine Admit Plan: Initiate Labor Protocol ALLERGIES Medication Allergies: Yes Medication Allergies: naproxen (02/07/2019); fentanyl (02/07/2019) Latex: No Latex Allergies Food Allergies: Pineapple and mushrooms Environmental Allergies: None OBSTETRICAL HISTORY EDC: 03/05/2019 00:00 : 1 Para: 0 Term: 0 : 0 SAB: 0 IAB: 0 Ectopic: 0 Livin Cesareans: 0 VBACs: 0 Multiple Births: 0 Gestational Diabetes: No Rh Sensitization: No Incompetent Cervix: No JEANNINE: No Infertility: No ART Treatment: No Uterine Anomaly: No IUGR: No Hx Previous C/S: No Macrosomia: No Hx Loss/Stillborn: No PIH: No Hx : No Placenta Previa/Abruption: No Depression/PP Depression: No PTL/PROM: No Post Hemorrhage: No Current Procedures: Ultrasound Obstetrical History Comments: G1- Current SEE RECORDS Alcohol: No Marijuana : No Cocaine: No Other Illicit Drugs: No Cigarettes: Former Smoker. 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 grade INFECTIOUS HISTORY Gonorrhea: No Genital Herpes: No Chlamydia: No Tuberculosis: No Syphilis: No Hepatitis: No HIV/AIDS Exposure: No Rash or Viral Illness: No HPV: No PHYSICAL EXAM General: Normal HEENT: Normal Neurologic: Normal Thyroid: Normal Heart: Normal Lungs: Normal Breast: Deferred Back: Normal Abdomen: Normal Genitourinary Exam: Normal Extremities: Normal DTRs: Normal Pelvic Type: Adequate FETUS A EGA: 36.2 PLANS FOR LABOR AND DELIVERY Labor and Delivery: None Pain Management: Natural; Epidural Feeding Preference: Breast Benefit of Breast Feed Discussed: Yes Circumcision: Yes INFORMED CONSENT Signature: with User ID: [email or web address]
[2019-02-08 00:04] LABS: ABSOLUTE BASOPHILS # (AUTO) 0.1 10^3/uL (0.0-0.2); ABSOLUTE EOSINOPHILS # (AUTO) 0.1 10^3/uL (0.0-0.6); ABSOLUTE LYMPHOCYTES (AUTO) 1.6 10^3/uL (0.5-4.7); ABSOLUTE MONOCYTES (AUTO) 0.7 10^3/uL (0.1-1.4); ABSOLUTE NEUT (AUTO) 6.6 10^3/uL (1.7-8.2); BASOPHILS % (AUTO) 0.7 % (0-2); EOSINOPHILS % (AUTO) 1.3 % (0-6); HEMATOCRIT 32.4 % (36.0-47.0); HEMOGLOBIN 11.3 g/dL (12.0-15.5); LYMPHOCYTES % (AUTO) 17.8 % (13-45); MEAN CORPUSCULAR HGB CONC 34.8 g/dL (32.0-36.0); MEAN CORPUSCULAR VOLUME 84 fl (80-97); PLATELET COUNT 212 10^3/uL (150-450); RED BLOOD COUNT 3.88 10^6/uL (3.72-5.28); RED CELL DISTRIBUTION WIDTH 13.7 % (11.5-14.0); SEGMENTED NEUTROPHILS % (AUTO) 72.2 % (42-78); TOTAL CELLS COUNTED % (AUTO) 100 %; WHITE BLOOD COUNT 9.1 10^3/uL (4.0-10.5)
[2019-02-08] MEDS ORDERED: PENICILLIN G-K 5 MILLION UNIT VIAL ONE ×4 (00:30→12:02)
[2019-02-08] MEDS ORDERED: ACETAMINOPHEN 325 MG TABLET PO ONE (01:55)
[2019-02-08] MEDS ORDERED: DIPHENHYDRAMINE HCL 50 MG CAPSULE PO ONE (01:56)
[2019-02-08] MEDS ORDERED: DIPHENHYDRAMINE HCL 25 MG CAPSULE ONE (01:57)
[2019-02-08] MEDS ORDERED: ACETAMINOPHEN 325 MG TABLET ONE (01:58)
[2019-02-08] MEDS: RINGERS SOLUTION,LACTATED 1,000 ML IV PRN ×2 (02:03→12:06)
[2019-02-08] MEDS ORDERED: BETAMET ACET/BETAMET NA INJ 6 MG/1 ML IM ONE (06:53)
[2019-02-08] MEDS ORDERED: BETAMET ACET/BETAMET NA INJ 6 MG/1 ML ONE (07:03)
[2019-02-08] MEDS ORDERED: OXYTOCIN/NORMAL SALINE 20 UNIT/1,000 ML RTUINJ ONE (08:01)
[2019-02-08] MEDS ORDERED: MISOPROSTOL 0.2 MG TABLET ONE (08:01)
[2019-02-08] MEDS ORDERED: LIDOCAINE 1% INJ-PF (10 MG/ML) 30 ML SDV ONE (08:01)
[2019-02-08] MEDS ORDERED: OXYTOCIN 10 UNIT/ML VIAL ONE (08:01)
[2019-02-08] MEDS: PENICILLIN G POTASSIUM 2,500,000 UNIT in DEXTROSE 5%-WATER 50 ML IV SCH ×3 (08:32→19:28)
[2019-02-08] MEDS ORDERED: EPHEDRINE SULFATE INJ 50 MG/1 ML AMPULE ONE (11:39)
[2019-02-08] MEDS ORDERED: PHENYLEPHRINE HCL INJ/PF 10 MG/1 ML SDV ONE (11:39)
[2019-02-08] MEDS ORDERED: LIDOCAINE 1.5%/EPINEPHRINE INJ 5 ML AMP ONE (11:40)
[2019-02-08] MEDS ORDERED: FENTANYL/BUPIVACAINE/NS/PF 0 MCG/0 ML RTUINJ EPI ONE (11:40)
[2019-02-08] MEDS ORDERED: BUPIVACAINE HCL 0.25 % INJ/PF (2.5 MG/1 ML) 30 ML VIAL ONE (11:40)
[2019-02-08] MEDS ORDERED: BUPIVACAINE HCL/NS/PF 125 MG/100 ML RTUINJ EPI ONE (12:01)
[2019-02-08] MEDS ORDERED: OXYTOCIN/NORMAL SALINE 20 UNIT/1,000 ML RTUINJ IV PRN ×2 (15:13→15:59)
[2019-02-08] MEDS ORDERED: BENZOCAINE/MENTHOL AEROSOL SPRAY 56 ML TOP PRN (15:59)
[2019-02-08] MEDS ORDERED: ZOLPIDEM TARTRATE 5 MG TABLET PO PRN (15:59)
[2019-02-08] MEDS ORDERED: MEASLES,MUMPS&RUBELLA VACC/PF 0.5 ML VIAL SUBCUT PRN (15:59)
[2019-02-08] MEDS ORDERED: ACETAMINOPHEN WITH CODEINE #3 TABLET PO PRN (15:59)
[2019-02-08] MEDS ORDERED: DIPH/PERTUSS(ACELL)/TETANUS VAC/PF 0.5 ML SYR (>=10YO) IM PRN (15:59)
[2019-02-08] MEDS ORDERED: DIBUCAINE 1% OINTMENT 56 GM TP PRN (15:59)
--- NOTE | 2019-02-08 17:16 | Delivery Summary ---
Del Sum A-C Datetime Report Generated by CPN: 02/08/2019 17:16 DELIVERY PERSONNEL DELIVERY PERSONNEL: [id number] Delivery Doctor:: Susanna Nails CNM Nurse Bushel Girl Certified:: Susanna Nails CNM Labor and Delivery Nurse:: Katrin Bull RN Labor and Delivery Nurse:: NEO Orellana Nursery Nurse:: Rod Michel RN Record Pressman/AUTO BRAKE TECHNICIAN: Susan Armenta, ST Additional Personnel: : Hoda Calles, RN MATERNAL INFORMATION Delivery Anesthesia: Epidural Medications After Delivery: Pitocin Bolus-Please Comment; Pitocin Drip 20 Units/1000ml NSS Meds After Delivery Comment: Pitocin 20 units in 1000 ml nss open for bolus Maternal Complications: None Provider Comments: of viable male infant at 36 wks. Delivered VETO, loose NC x 1 easily reduced. Crying and in stable condition, placed on pts abdoman. Cord clamped and cut after one minute. Cord blood obtained. PLacenta S/C/I. FF w/ decreased lochia, IV Pitocin infusing. Placenta sent to Pathology. PCN x 4 doses given during labor. Vaginal sidewalls repaired. QBL 200 ml. Pt and baby left in stable condition. Apgars 9,9. Pt plans to breastfeed LABOR SUMMARY EDC: 03/05/2019 00:00 No. Babies in Womb: 1 Attempted: No Labor Anesthesia: Epidural LABOR INFORMATION Reason for Induction: Not Applicable Onset of Labor: 02/08/2019 10:00 Complete Dilatation: 02/08/2019 15:10 Oxytocin: Augmentation Group B Beta Strep: unknown Antibiotics # of Doses: 4 Antibiotics Time of Last Dose: 1230 Name of Antibiotic Given: PENICILLIN G Steroids Given: Partial Course Reason Steroids Not Administered: Indication MEMBRANES Membranes Rupture Method: Spontaneous Rupture of Membranes: 02/07/2019 21:00 Length of Rupture (hr): 18.57 Amniotic Fluid Color: Clear STAGES OF LABOR Stage 1 hr: 5 Stage 1 min: 10 Stage 2 hr: 0 Stage 2 min: 24 Stage 3 hr: 0 Stage 3 min: 3 Total Time in Labor hr: 5 Total Time in Labor min: 37 VAGINAL DELIVERY Episiotomy: None Laceration #1: Vaginal Laceration Extension #1: N/A Other Laceration: right and left vaginal side wall with repair Laceration Repair: Yes Laceration Repair Note: repaired with 3.0 Vicryl, pt tolerated well Sponge Count Correct: N/A Sharps Count Correct: N/A CSECTION DELIVERY Primary Indication: N/A Secondary Indication: N/A CSection Incidence: N/A Labor: N/A Elective: N/A CSection Incision: N/A BABY A INFORMATION Infant Delivery Date/Time: 02/08/2019 15:34 Method of Delivery: Vaginal Born in Route : No : N/A Forceps: N/A Vacuum Extraction: N/A Shoulder Dystocia : No PRESENTATION/POSITION BABY A Presentation: Cephalic Cephalic Presentation: Vertex Vertex Position: Left Occipital Anterior Breech Presentation: N/A PLACENTA INFORMATION BABY A Placenta Delivery Time : 02/08/2019 15:37 Placenta Method of Delivery: Spontaneous Placenta Status: Delivered SCORES BABY A Heart Rate 1 min: >100 bpm Resp Effort 1 min: Good Cry Reflex Irritability 1 min: Cough or Sneeze or Pulls Away Muscle Tone 1 min: Active Motion Color 1 min: Body Wayne, Extremities Blue Resuscitation Effort 1 min: Tactile Stimulation SCORE 1 MIN: 9 Heart Rate 5 min: >100 bpm Resp Effort 5 min: Good Cry Reflex Irritability 5 min: Cough or Sneeze or Pulls Away Muscle Tone 5 min: Active Motion Color 5 min: Body Wayne, Extremities Blue Resuscitation Effort 5 min: N/A SCORE 5 MIN: 9 Resuscitation Effort 10 min: N/A INFORMATION BABY A Gestational Age at Delivery: 36.3 Gestational Status: Late - 34- 36.6 Weeks Outcome : Liveborn Condition : Stable Infant Sex: Male IDENTIFICATION BABY A Infant Verification Date/Time: 02/08/2019 15:59 ID Band Number: [id number] Mother's Name Verified: Yes Infant RN Verifying : Olinda Camp RNC Additional Verifying Personnel: Aleyda Bull RN WEIGHT/LENGTH BABY A Birthweight (gm): 2930 Infant Weight (lb): 6 Infant Weight (oz): 7 Infant Length (in): 19.75 Infant Length (cm): 50.17 CORD INFORMATION BABY A No. Cord Vessels: 3 Nuchal Cord : Around Neck x1, Loose Cord Blood Taken: Yes-For Storage (Mom's Blood type +) Infant Suction: None ASSESSMENT BABY A Infant Complications: Other Infant Complications- Other: PPROM Physical Findings at Delivery: Caput Succedaneum Infant Respirations: Grunting Skin to Skin: Yes House Repairer/ALS Called : No Infant Care By: Jourdan OWENS RN AFTER DELIVERY Transferred To: [facility] BABY B INFORMATION : N/A SIGNATURES Assignment: Regina Croft MD Signature: with User ID: [email or web address] : with User ID: [email or web address]
[2019-02-08] MEDS: IBUPROFEN 800 MG TABLET PO SCH ×2 (19:25→21:08)
[2019-02-08] MEDS: DOCUSATE SODIUM 100 MG CAPSULE PO SCH (19:25)
[2019-02-08] MEDS: FERROUS SULFATE 325 MG TABLET PO SCH (19:25)
[2019-02-09] MEDS: IBUPROFEN 800 MG TABLET PO SCH ×3 (06:29→22:58)
[2019-02-09 06:48] LABS: HEMATOCRIT 31.3 % (36.0-47.0); HEMOGLOBIN 10.4 g/dL (12.0-15.5); MEAN CORPUSCULAR HEMOGLOBIN 28.4 pg (27.0-33.4); MEAN CORPUSCULAR HGB CONC 33.4 g/dL (32.0-36.0); MEAN CORPUSCULAR VOLUME 85 fl (80-97); PLATELET COUNT 212 10^3/uL (150-450); RED BLOOD COUNT 3.68 10^6/uL (3.72-5.28); RED CELL DISTRIBUTION WIDTH 14.1 % (11.5-14.0); WHITE BLOOD COUNT 14.3 10^3/uL (4.0-10.5)
[2019-02-09] MEDS: PRENATAL VITAMIN W DHA CAPSULE PO SCH (09:43)
[2019-02-09] MEDS: DOCUSATE SODIUM 100 MG CAPSULE PO SCH ×2 (09:43→19:08)
[2019-02-09] MEDS: SENNOSIDES/DOCUSATE 8.6-50 MG 1 EACH TABLET PO SCH (09:43)
[2019-02-09] MEDS: FERROUS SULFATE 325 MG TABLET PO SCH ×2 (09:43→19:09)
[2019-02-10] MEDS: IBUPROFEN 800 MG TABLET PO SCH ×2 (05:11→13:16)
[2019-02-10] MEDS: PRENATAL VITAMIN W DHA CAPSULE PO SCH (09:48)
[2019-02-10] MEDS: SENNOSIDES/DOCUSATE 8.6-50 MG 1 EACH TABLET PO SCH (09:48)
[2019-02-10] MEDS: FERROUS SULFATE 325 MG TABLET PO SCH ×2 (09:49→17:11)
[2019-02-10] MEDS: DOCUSATE SODIUM 100 MG CAPSULE PO SCH ×2 (09:49→17:11)
--- NOTE | 2019-02-10 10:51 | PDOC DISCHARGE SUMMARY ---
Final Diagnosis Discharge Date: 02/10/19 - Final Diagnosis (1) Normal vaginal delivery Is this a current diagnosis for this admission?: Yes (2) delivery Is this a current diagnosis for this admission?: Yes (3) Obstetric vaginal laceration without perineal laceration Is this a current diagnosis for this admission?: Yes (4) premature rupture of membranes (PPROM) delivered, current hospitalization Is this a current diagnosis for this admission?: Yes Discharge Data - Discharge Medication Prescriptions: Ibuprofen [Motrin 800 mg Tablet] 800 mg PO Q8HP PRN #60 tablet PRN Reason: Home Medications: Pnv No.95/Ferrous Fum/Folic AC [ Vitamin Tablet] 1 each PO DAILY 09/01/18 Ibuprofen [Motrin 800 mg Tablet] 800 mg PO Q8HP PRN #60 tablet 02/10/19 Reason(s) for Admission: PROM Procedures: NST Intrapartum Procedure(s): Spontaneous Vaginal Delivery Complication(s): Laceration-Vaginal Laceration-Degree: 1st - Diagnosis Test Laboratory: Temp Pulse Resp BP Pulse Ox 97.8 F 71 18 123/68 100 02/09/19 20:34 02/09/19 20:34 02/09/19 20:34 02/09/19 20:34 02/09/19 20:34 02/07/19 02/07/19 02/09/19 22:40 23:54 06:33 RBC 3.88 3.68 L Hgb 11.3 L 10.4 L Hct 32.4 L 31.3 L Urine Opiates Screen NEGATIVE - Discharge information/Instructions Discharge Activity: Balance Activity w/Rest, Pelvic Rest Discharge Diet: Regular Disposition: HOME, SELF-CARE Follow [facility] with: [facility] in: 4, Weeks
[2019-02-10 15:56] VITALS: BP 113/65
[2019-02-10] MEDS ORDERED: DIPH/PERTUSS(ACELL)/TETANUS VAC/PF 0.5 ML SYR (>=10YO) IM PRN (16:18)
== END 2019-02-10 18:30 | disposition home or self-care (01) | DRG 805 ==
LOC: LC 22:20 → LR 23:29 → 2S 02-08 18:35
PROVIDERS: ADMIT Obstetrics & Gynecology Gynecology; ATTEND Obstetrics & Gynecology Gynecology
PROC: 10E0XZZ Delivery of Products of Conception, External Approach (ICD-10-PCS; principal; 2019-02-08)
PROC: 0UQGXZZ Repair Vagina, External Approach (ICD-10-PCS; 2019-02-08)
PROC: 3E0234Z Introduction of Serum, Toxoid and Vaccine into Muscle, Percutaneous Approach (ICD-10-PCS; 2019-02-10)
DX: O42.913 Preterm premature rupture of membranes, unspecified as to length of time between rupture and onset of labor, third trimester (principal); O60.14X0 Preterm labor third trimester with preterm delivery third trimester, not applicable or unspecified; Z37.0 Single live birth; O71.4 Obstetric high vaginal laceration alone; O69.81X0 Labor and delivery complicated by cord around neck, without compression, not applicable or unspecified; Z3A.36 36 weeks gestation of pregnancy; Z23 Encounter for immunization
CPT/HCPCS: 36415; 80307; 81005; 84112; 85025; 85027; 86592; 86850; 86900; 86901; 87081; 88307; 90715; J0702; J2370; J2540; J2590; J3010; J3490; J7060